=== PATIENT | female | born 1955 | race Two or more races ===

== ENCOUNTER 2021-07-22 19:48 | Emergency (ER) | payer MEDICARE, OTHER ==
[~2021-07-22] VITALS: Ht 157.5 cm; Wt 58.5 kg
--- NOTE | 2021-07-22 19:57 | NUR ---
BIBS C/O CHEST TIGHTNESS, SOB AND COUGH X 15 DAYS. AAOX4, NOT IN RESPIRATORY DISTRESS. ON MONITOR. POX 100% ON RA.
--- NOTE | 2021-07-22 20:15 | NUR ---
EMT AT BEDSIDE FOR EKG
--- NOTE | 2021-07-22 20:15 | NUR ---
PT PROVIDED WITH WARM BLANKET FOR COMFORT.
[2021-07-22] MEDS ORDERED: LORAZEPAM INJ 2 MG/ML VIAL ONE (20:24)
[2021-07-22] MEDS ORDERED: LORAZEPAM INJ 2 MG/ML VIAL IM ONE (20:30)
[2021-07-22 21:31] LABS: BASOPHILS % (AUTO) 0.7 % (0.0-2.0); EOSINOPHILS % (AUTO) 2.9 % (0.0-6.0); HEMATOCRIT 40 % (33-45); HEMOGLOBIN 13.6 g/dL (11.5-14.8); LYMPHOCYTES # (AUTO) 1.2 K/uL (0.8-4.8); MEAN CORPUSCULAR HGB CONC 34 g/dl (31.0-36.0); MEAN CORPUSCULAR VOLUME 91 fL (82-100); MONOCYTES # (AUTO) 0.4 K/uL (0.1-1.30); MONOCYTES % (AUTO) 6.6 % (2.0-12.0); NEUTROPHILS # (AUTO) 4.1 K/uL (1.8-8.9); NEUTROPHILS % (AUTO) 69.8 % (43.0-81.0); PLATELET COUNT (AUTO) 288 K/uL (150-450); RED BLOOD CELL COUNT(AUTO) 4.43 MIL/uL (4.0-5.2); WHITE BLOOD COUNT (AUTO) 5.8 K/uL (4.3-11.0)
[2021-07-22] MEDS ORDERED: LORA-259 PO (21:38)
[2021-07-22] MEDS ORDERED: ESCI5TAB PO (21:38)
[2021-07-22 23:12] LABS: CALCIUM, SERUM 8.9 mg/dL (8.5-10.1); CARBON DIOXIDE 24 mmol/L (21-32); CHLORIDE 105 mmol/L (98-107); CREATININE 0.8 mg/dL (0.6-1.3); GLUCOSE 100 mg/dL (74-106); POTASSIUM 3.4 mmol/L (3.5-5.1); SODIUM SERUM 138 mmol/L (136-145); UREA NITROGEN, BLOOD 13 mg/dL (7-18)
--- NOTE | 2021-07-23 00:34 | NUR ---
IV removed. Catheter intact and site benign. Pressure and 4x4 applied to site. No bleeding noted.
--- NOTE | 2021-07-23 00:35 | NUR ---
Patient does not wish to proceed with medical care recommended by Tavo Montano. Patient given information related to possible complications, up to and including , which could occur as a result of leaving the hospital at this time. Patient verbalizes understanding of risks involved due to leaving against medical advice. Patient has signed AMA form.
[2021-07-23 00:50] VITALS: BP 121/71
== END 2021-07-23 00:36 | disposition left against medical advice (07) ==
LOC: ER 19:51
DX: F41.0 Panic disorder [episodic paroxysmal anxiety] (principal); R07.89 Other chest pain; M79.7 Fibromyalgia; J45.909 Unspecified asthma, uncomplicated; K21.9 Gastro-esophageal reflux disease without esophagitis; M19.90 Unspecified osteoarthritis, unspecified site; Z88.5 Allergy status to narcotic agent; Z88.8 Allergy status to other drugs, medicaments and biological substances; Z60.2 Problems related to living alone; Z79.52 Long term (current) use of systemic steroids; Z79.899 Other long term (current) drug therapy
CPT/HCPCS: 36415; 71045; 80048; 83880; 84484; 85025; 93005; 96372; 99285; J2060